=== PATIENT | female | born 1955 | race Caucasian/White ===

== ENCOUNTER 2020-10-05 23:10 | Emergency (ER) | payer MEDICARE, OTHER ==
[~2020-10-05] VITALS: Ht 167.6 cm; Wt 122.0 kg
[2020-10-05] MEDS ORDERED: ELIQUIS5 MG PO (23:25)
[2020-10-05] MEDS ORDERED: COZAAR25 MG PO (23:25)
[2020-10-05] MEDS ORDERED: TOPROL XL25 MG PO (23:25)
[2020-10-05] MEDS ORDERED: EFFER-K 20 MEQ20 MEQ PO (23:26)
[2020-10-05] MEDS ORDERED: LASIX20 MG PO (23:27)
[2020-10-05] MEDS ORDERED: OXYCODONE HCL10 MG PO (23:28)
== END 2020-10-06 00:30 | disposition home or self-care (01) ==
LOC: ED 23:10
DX: S00.93XA Contusion of unspecified part of head, initial encounter (principal); G93.5 Compression of brain; W01.10XA Fall on same level from slipping, tripping and stumbling with subsequent striking against unspecified object, initial encounter; I10 Essential (primary) hypertension; I48.91 Unspecified atrial fibrillation; Z88.8 Allergy status to other drugs, medicaments and biological substances; Z79.899 Other long term (current) drug therapy
CPT/HCPCS: 70450; 99283-25